=== PATIENT | female | born 1950 | race African-American/Black ===

== ENCOUNTER 2017-04-26 20:14 | Observation (INO) | payer MEDICARE, MEDICAID ==
[2017-04-26] MEDS ORDERED: NORMAL SALINE 1000 ML 1,000 ML IV ONE (20:56)
[2017-04-26] MEDS ORDERED: ONDANSETRON HCL INJ/PF 4 MG/2 ML SDV IV ONE (20:57)
--- NOTE | 2017-04-26 20:59 | ER Document Report ---
ED General - General Stated Complaint: ABDOMINAL PAIN Time Seen by Provider: 04/26/17 20:55 Notes: Patient is a 66-year-old female no reported past medical history who presents with epigastric abdominal pain. The patient is a very poor historian, struggles to explain the reasoning for her presentation today. She only states that for the past 24 hours she has had a dull, constant, throbbing pain in her upper abdomen. Nothing improves or worsens the pain. She reports that she feels nauseated with this pain but has not had any vomiting or diarrhea. She denies any history of similar symptoms in the past. She does report a prior surgical history of a partial hysterectomy but denies any additional abdominal surgeries in the past. She denies any fever, chest pain, shortness of breath or syncope. She does not have a primary care doctor and states that she has not seen a doctor in the last 4 years. TRAVEL OUTSIDE OF THE [place] IN LAST 30 DAYS: No - Related Data Allergies/Adverse Reactions: Shellfish * [Shellfish] Allergy (Verified 08/03/13 08:17) glands swell up Past Medical History - General Information source: Patient - Social History Smoking Status: Current Every Day Smoker Frequency of alcohol use: None Drug Abuse: None Lives with: Alone Family History: Reviewed & Not Pertinent - Past Medical History Cardiac Medical History: Reports: Hx Hypertension Pulmonary Medical History: Reports: Hx Asthma Past Surgical History: Reports: Hx Breast Surgery - cyst removed x2, Hx Hysterectomy - partial - Immunizations Hx Diphtheria, Pertussis, Tetanus Vaccination: No Review of Systems - Review of Systems Notes: Constitutional: Negative for fever. HENT: Negative for sore throat. Eyes: Negative for visual changes. Cardiovascular: Negative for chest pain. Respiratory: Negative for shortness of breath. Gastrointestinal: Positive for abdominal pain and nausea. Genitourinary: Negative for dysuria. Musculoskeletal: Negative for back pain. Skin: Negative for rash. Neurological: Negative for headaches, weakness or numbness. 10 point ROS negative except as marked above and in HPI. Physical Exam - Vital signs Vitals: Resp Pulse Ox 15 100 04/26/17 20:59 04/26/17 20:59 Interpretation: Normal Notes: PHYSICAL EXAMINATION: GENERAL: Well-appearing, well-nourished and in no acute distress. HEAD: Atraumatic, normocephalic. EYES: Pupils equal round and reactive to light, extraocular movements intact, sclera anicteric, conjunctiva are normal. ENT: nares patent, oropharynx clear without exudates. Moist mucous membranes. NECK: Normal range of motion, supple without lymphadenopathy LUNGS: Breath sounds clear to auscultation bilaterally and equal. No wheezes rales or rhonchi. HEART: Regular rate and rhythm without murmurs ABDOMEN: Soft, focal tenderness to the epigastrium but otherwise no localized tenderness, normoactive bowel sounds. No guarding, no rebound. No masses appreciated. EXTREMITIES: Normal range of motion, no pitting or edema. No cyanosis. NEUROLOGICAL: No focal neurological deficits. Moves all extremities spontaneously and on command. PSYCH: Has some mild difficulty providing history but otherwise alert and oriented 4 SKIN: Warm, Dry, normal turgor, no rashes or lesions noted. Course - Re-evaluation Re-evalutation: 04/26/17 20:57 Patient presents with generalized abdominal pain most localized to the epigastrium and is overall ill in appearance. She is in obvious agony. Prior surgical history is a partial hysterectomy and she denies any other medical problems. Differential diagnostic concerns include possible pathology, acute pancreatitis, mesenteric ischemia, possible bowel obstruction although patient has not had any vomiting. IV access will be established. Will begin nausea and pain control. Begin IV fluids. Will also obtain labs and CT abdomen pelvis with contrast to further evaluate. 04/27/17 00:08 Patient's troponin continues to trend become increasingly worse in the patient' s epigastric abdominal pain with nausea is an atypical presentation of ACS. Her EKG is without ischemic changes. Will repeat an additional troponin at this time to monitor the ongoing trend and provide Lovenox as well as aspirin. 04/27/17 01:20 Third repeat troponin has down trended somewhat and Dr. Prajapati has accepted the patient for admission. I have updated the patient and she does seem somewhat lethargic but does awaken talk to me. Will give a small amount of naloxone as I am concerned that patient may have become oversedated with the last dose of 4 mg of morphine. - Vital Signs Vital signs: Temp Pulse Resp BP Pulse Ox 99.4 F 108 H 14 149/73 H 100 04/26/17 21:03 04/26/17 21:03 04/27/17 00:01 04/27/17 00:01 04/27/17 00:01 - Laboratory Result Diagrams: 04/26/17 20:55 04/26/17 20:55 Laboratory results interpreted by me: 04/26/17 04/26/17 04/26/17 20:55 20:55 22:50 Hgb 11.1 L Hct 33.2 L Seg Neuts % (Manual) 92 H Lymphocytes % (Manual) 4 L Abs Lymphs (Manual) 0.3 L Sodium 136.6 L Glucose 139 H Urine Ketones 20 H Urine Blood LARGE H - Diagnostic Test Radiology reviewed: Reports reviewed - EKG Interpretation by Me Additional EKG results interpreted by me: 04/27/17 01:21 Sinus tachycardia. Rate 104. No ST elevations or depressions. QTC is 400 Discharge - Discharge Clinical Impression: Elevated troponin, Epigastric abdominal pain Condition: Fair Disposition: ADMITTED OBSERVATION Admitting Provider: Hospitalist [facility] Unit Admitted: Telemetry
[2017-04-26 21:16] LABS: HEMATOCRIT 33.2 % (36.0-47.0); HEMOGLOBIN 11.1 g/dL (12.0-15.5); MEAN CORPUSCULAR HEMOGLOBIN 28.2 pg (27.0-33.4); MEAN CORPUSCULAR HGB CONC 33.5 g/dL (32.0-36.0); MEAN CORPUSCULAR VOLUME 84 fl (80-97); PLATELET COUNT 280 10^3/uL (150-450); RED BLOOD COUNT 3.94 10^6/uL (3.72-5.28); RED CELL DISTRIBUTION WIDTH 13.2 % (11.5-14.0); WHITE BLOOD COUNT 8.3 10^3/uL (4.0-10.5)
[2017-04-26] MEDS: MORPHINE SULFATE 10 MG/ML INJ IV PRN ×2 (21:18→23:21)
[2017-04-26 21:28] LABS: ALANINE AMINOTRANSFERASE 23 U/L (9-52); ALBUMIN 4.5 g/dL (3.5-5.0); ALKALINE PHOSPHATASE 69 U/L (38-126); ANION GAP 12 (5-19); ASPARTATE AMINO TRANSFERASE 26 U/L (14-36); BILIRUBIN,DIRECT 0.2 mg/dL (0.0-0.4); BILIRUBIN,TOTAL 0.5 mg/dL (0.2-1.3); BLOOD UREA NITROGEN 9 mg/dL (7-20); CALCIUM 9.4 mg/dL (8.4-10.2); CARBON DIOXIDE 26 mmol/L (22-30); CHLORIDE 99 mmol/L (98-107); GLUCOSE 139 mg/dL (75-110); LIPASE 31.4 U/L (23-300); POTASSIUM 4.1 mmol/L (3.6-5.0); SODIUM 136.6 mmol/L (137-145); TOTAL PROTEIN 8.2 g/dL (6.3-8.2)
[2017-04-26 21:58] LABS: ABSOLUTE LYMPHOCYTES# (MANUAL) 0.3 10^3/uL (0.5-4.7); ABSOLUTE MONOCYTES # (MANUAL) 0.3 10^3/uL (0.1-1.4); ABSOLUTE NEUTROPHILS# (MANUAL) 7.6 10^3/uL (1.7-8.2); BASOPHILS % (MANUAL) 0 % (0-2); EOSINOPHILS % (MANUAL) 0 % (0-6); LYMPHOCYTES % (MANUAL) 4 % (13-45); MONOCYTES % (MANUAL) 4 % (3-13); SEGMENTED NEUTROPHILS % (MAN) 92 % (42-78); TOTAL CELLS COUNTED 100
[2017-04-26 21:59] LABS: PLATELET COMMENT ADEQUATE; PLATELET GIANT PRESENT; PLATELET LARGE PRESENT; SCHISTOCYTES SLIGHT; TEAR DROP CELLS SLIGHT; TOXIC GRANULATION 1+; TOXIC VACUOLATION PRESENT
--- NOTE | 2017-04-26 23:13 | RADIOLOGY REPORT (SQ) ---
EXAM DESCRIPTION: CT ABD/PELVIS NO ORAL OR IV COMPLETED DATE/TIME: 04/26/2017 10:53 pm REASON FOR STUDY: generalized abdominal pain COMPARISON: None. TECHNIQUE: CT scan of the abdomen and pelvis performed without intravenous or oral contrast. Images reviewed with lung, soft tissue, and bone windows. Reconstructed coronal and sagittal MPR images revi ewed. All images stored on PACS. All CT scanners at this facility use dose modulation, iterative reconstruction, and/or weight based d osing when appropriate to reduce radiation dose to as low as reasonably achievable (ALARA). [facility]: Dose Right [facility]: CareDose [facility]: Dose Right [facility]: Teradose 4D [facility]: [employer] RADIATION DOSE: CT Rad equipment meets quality standard of care and radiation dose reduction techniq ues were employed. CTDIvol: 12.4 mGy. DLP: 572 mGy-cm.mGy. LIMITATIONS: None. FINDINGS: LOWER CHEST: Small area of subsegmental atelectasis in the right lower lobe. NON-CONTRASTED LIVER, SPLEEN, ADRENALS: Evaluation limited by lack of IV contrast. No identified sign ificant masses. PANCREAS: No masses. No peripancreatic inflammatory changes. GALLBLADDER: No identified stones by CT criteria. No inflammatory changes to suggest cholecystitis. RIGHT KIDNEY AND URETER: No suspicious masses. Assessment limited by lack of IV contrast. No signif icant calcifications. No hydronephrosis or hydroureter. LEFT KIDNEY AND URETER: No suspicious masses. Assessment limited by lack of IV contrast. No signifi cant calcifications. No hydronephrosis or hydroureter. AORTA AND RETROPERITONEUM: No aneurysm. No retroperitoneal masses or adenopathy. BOWEL AND PERITONEAL CAVITY: Diverticulosis. No obvious masses or inflammatory changes. No free flui d. APPENDIX: Normal. PELVIS, BLADDER, AND ABDOMINAL WALL:Prior hysterectomy. No free fluid. Bladder normal. BONES: No acute findings. OTHER: No other significant finding. IMPRESSION: NO ACUTE PROCESS IN THE ABDOMEN OR PELVIS. Small area of subsegmental atelectasis in the right lower lobe. COMMENT: Quality ID # [id number]: Final reports with documentation of one or more dose reduction techniques (e.g., Automated exposure control, adjustment of the mA and/or kV according to patient size, use of iterative reconstruction technique) TECHNICAL DOCUMENTATION: JOB ID: [id number] [place]-72 2010 [employer]- All Rights Reserved
[2017-04-26 23:14] LABS: APPEARANCE,URINE CLEAR; BILIRUBIN,URINE NEGATIVE (NEGATIVE); COLOR,URINE YELLOW; GLUCOSE, URINE NEGATIVE (NEGATIVE); KETONES,URINE 20 mg/dL (NEGATIVE); LEUKOCYTE ESTERASE,URINE NEGATIVE (NEGATIVE); NITRITE,URINE NEGATIVE (NEGATIVE); PROTEIN,URINE NEGATIVE (NEGATIVE); URINE SPECIFIC GRAVITY 1.011; UROBILINOGEN,URINE NEGATIVE mg/dL (<2.0)
[2017-04-27] MEDS ORDERED: ASPIRIN 81 MG TABLET, CHEWABLE PO ONE (00:08)
[2017-04-27] MEDS: ENOXAPARIN SODIUM INJ 80 MG/0.8 ML DISP.SYRIN SUBCUT SCH ×2 (01:02→21:35)
[2017-04-27] MEDS ORDERED: NITROGLYCERIN 0.4 MG/TAB 25 TAB/BOTTLE SL PRN (01:19)
[2017-04-27] MEDS ORDERED: ONDANSETRON HCL INJ/PF 4 MG/2 ML SDV IV PRN (01:19)
[2017-04-27] MEDS ORDERED: MORPHINE SULFATE 10 MG/ML INJ IV PRN (01:19)
[2017-04-27] MEDS ORDERED: NALOXONE HCL INJ/PF 0.4 MG/1 ML SDV IV ONE ×3 (01:20→05:23)
[2017-04-27] MEDS ORDERED: NALOXONE HCL INJ/PF 0.4 MG/1 ML SDV ONE ×2 (01:21→01:56)
[2017-04-27] MEDS ORDERED: LOSARTAN POTASSIUM 25 MG TABLET PO SCH ×2 (01:30→10:00)
[2017-04-27] MEDS ORDERED: FAMOTIDINE 20 MG TABLET PO ONE (01:45)
[2017-04-27] MEDS ORDERED: ATORVASTATIN CALCIUM 40 MG TABLET PO ONE (01:45)
[2017-04-27] MEDS ORDERED: NITROGLYCERIN 2% OINTMENT 1 GM PACKET ONE (01:56)
[2017-04-27] MEDS ORDERED: DOXYCYCLINE HYCLATE 100 MG TABLET PO ONE (03:00)
[2017-04-27] MEDS ORDERED: NITROGLYCERIN 2% OINTMENT 1 GM PACKET TP ONE (03:00)
[2017-04-27 03:04] LABS: VENOUS BLOOD BASE EXCESS 0.5 mmol/L; VENOUS BLOOD HCO3 27.6 mmol/L (20-32); VENOUS BLOOD PCO2 56.5 mmHg (35-63); VENOUS BLOOD PH 7.31 (7.30-7.42)
[2017-04-27] MEDS: METHYLPREDNISOLONE INJ 125 MG/2 ML SDV IV SCH ×3 (03:10→21:36)
--- NOTE | 2017-04-27 03:16 | RADIOLOGY REPORT (SQ) ---
EXAM DESCRIPTION: CT HEAD WITHOUT CLINICAL HISTORY: Altered mental status COMPARISON: 07/08/2012 TECHNIQUE: Axial CT of the head obtained from the skull apex to the skull base without contrast. FINDINGS: No acute intracranial hemorrhage identified. No mass, mass effect, shift of the midline, abnormal extra-axial fluid collection or CT evidence of acute ischemic change identified. The ventricular system is unremarkable. No acute abnormalities of the supratentorial white matter, basal ganglia, cerebellum, or brainstem. The visualized paranasal sinuses and the mastoids are clear. No skull fracture identified. Visualized orbits and globes are unremarkable. DLP: 1396.6 mGy-cm IMPRESSION: 1. No acute intracranial abnormality identified. This exam was performed according to our departmental dose-optimization program, which includes automated exposure control, adjustment of the mA and/or kV according to patient size and/or use of iterative reconstruction technique.
[2017-04-27] MEDS ORDERED: LEVALBUTEROL HCL NEB 1.25 MG/3 ML AMPUL NEB PRN (03:21)
[2017-04-27] MEDS ORDERED: MAG HYDROX/AL HYDROX/SIMETH SUSP 30 ML UDCUP PO ONE (04:57)
[2017-04-27] MEDS ORDERED: LIDOCAINE 2% VISCOUS SOLN 20 ML UDCUP PO ONE (04:57)
[2017-04-27] MEDS ORDERED: METOCLOPRAMIDE HCL ORAL SOLN 10 MG/10 ML UDCUP PO ONE (04:57)
--- NOTE | 2017-04-27 04:59 | PDOC H&P ---
History of Present Illness Admission Date/PCP: 04/27/17 01:35 History of Present Illness: RIC NORRIS is a 66 year old female with past medical history of hypertension who is not on any medication who presents to the emergency department with complaints of epigastric pain and nausea. Patient reports that she has had midepigastric pain and nausea and vomiting today. Patient is a very poor historian and she is very unrevealing in her reasons for admission. Patient had received morphine and was given Narcan, but is still quite talkative at this time only complaining of abdominal pain. CT of the abdomen and pelvis without IV contrast or oral contrast reveals no acute pathology. Patient did have an indeterminate troponin which was downtrending at the time that I excepted this admission. She is referred to the hospitalist service for concern for atypical chest pain presentation. I attempted to call the listed telephone number for an Armin Norris, but was given the message that this number was disconnected are no longer in service. Unable to obtain any collateral information. Past Medical History Cardiac Medical History: Reports: Hypertension Pulmonary Medical History: Reports: Asthma Past Surgical History Past Surgical History: Reports: Hysterectomy - partial Social History Smoking Status: Former Smoker Frequency of Alcohol Use: None Hx Recreational Drug Use: No Hx Prescription Drug Abuse: No - Advance Directive Surrogate healthcare decision maker:: Does not answer Family History Family History: Other - Unable to ascertain due to her mental status Parental Family History Reviewed: No Children Family History Reviewed: No Sibling(s) Family History Reviewed.: No Medication/Allergy Home Medications: Codeine/Promethazine HCl [Promethazine-Codeine Syrup] 5 ml PO Q6 #200 ml Allergies/Adverse Reactions: Shellfish * [Shellfish] Allergy (Verified 08/03/13 08:17) glands swell up Review of Systems ROS unobtainable: Due to mental status - Noncompliance with exam Physical Exam Vital Signs: Temp Pulse Resp BP Pulse Ox 99.4 F 108 H 14 149/73 H 100 04/26/17 21:03 04/26/17 21:03 04/27/17 00:01 04/27/17 00:01 04/27/17 00:01 General appearance: PRESENT: mild distress, obese, well-developed, well- nourished Head exam: PRESENT: atraumatic, normocephalic Eye exam: PRESENT: conjunctiva pink, EOMI, PERRLA. ABSENT: conjunctival injection, scleral icterus Ear exam: PRESENT: normal external ear exam Mouth exam: PRESENT: dry mucosa, tongue midline Neck exam: ABSENT: JVD, lymphadenopathy, thyromegaly, tracheal deviation Respiratory exam: PRESENT: prolonged expiratory phas, symmetrical, unlabored, wheezes. ABSENT: accessory muscle use, crackles, rales, rhonchi, tachypnea Cardiovascular exam: PRESENT: RRR, +S1, +S2. ABSENT: diastolic murmur, rubs, systolic murmur Pulses: PRESENT: normal dorsalis pedis pul Vascular exam: PRESENT: normal capillary refill GI/Abdominal exam: PRESENT: normal bowel sounds, soft. ABSENT: distended, firm , guarding, mass, Cruz's sign, organolmegaly, rebound, rigid, tenderness Rectal exam: PRESENT: deferred Extremities exam: PRESENT: full ROM, +1 edema. ABSENT: calf tenderness, clubbing Neurological exam: PRESENT: altered, CN II-XII grossly intact. ABSENT: motor sensory deficit Psychiatric exam: PRESENT: flat affect, unusual affect Skin exam: PRESENT: dry, intact, warm. ABSENT: cyanosis, rash Results Laboratory Results: 04/26/17 04/26/17 04/26/17 20:55 20:55 20:55 WBC 8.3 RBC 3.94 Hct 33.2 L Seg Neuts % (Manual) 92 H VBG pH VBG pCO2 VBG HCO3 Sodium 136.6 L Potassium 4.1 Chloride 99 Carbon Dioxide 26 Anion Gap 12 BUN 9 Creatinine 0.52 Glucose 139 H Calcium 9.4 Total Bilirubin 0.5 Direct Bilirubin 0.2 AST 26 ALT 23 Alkaline Phosphatase 69 Troponin I 0.066 Total Protein 8.2 Albumin 4.5 Lipase 31.4 TSH Urine Ketones Urine Blood Urine RBC (Auto) 04/26/17 04/26/17 04/26/17 20:55 22:40 22:50 WBC RBC Hct Seg Neuts % (Manual) VBG pH VBG pCO2 VBG HCO3 Sodium Potassium Chloride Carbon Dioxide Anion Gap BUN Creatinine Glucose Calcium Total Bilirubin Direct Bilirubin AST ALT Alkaline Phosphatase Troponin I 0.103 Total Protein Albumin Lipase TSH 0.13 L Urine Ketones 20 H Urine Blood LARGE H Urine RBC (Auto) 26 04/27/17 04/27/17 00:10 02:35 WBC RBC Hct Seg Neuts % (Manual) VBG pH 7.31 VBG pCO2 56.5 VBG HCO3 27.6 Sodium Potassium Chloride Carbon Dioxide Anion Gap BUN Creatinine Glucose Calcium Total Bilirubin Direct Bilirubin AST ALT Alkaline Phosphatase Troponin I 0.094 Total Protein Albumin Lipase TSH Urine Ketones Urine Blood Urine RBC (Auto) Impressions: Abdomen/Pelvis CT 04/26/17 20:56 IMPRESSION: NO ACUTE PROCESS IN THE ABDOMEN OR PELVIS. Small area of subsegmental atelectasis in the right lower lobe. Status: Imported from PACS Assessment & Plan - Diagnosis (1) Elevated troponin Is this a current diagnosis for this admission?: Yes Plan: Patient has an indeterminate troponin. Place patient on telemetry observation. Monitor for arrhythmia or ST segment changes. Initiate patient on treatment dose Lovenox. Initiate patient on metoprolol, Lipitor, Cozaar, oxygen, nitroglycerin, and aspirin. Serial cardiac enzymes every 6 hours. Testing lipid panel in the morning. Will obtain stress test tomorrow due to patient's risk factors and concerning history of chest pain. (2) Altered mental status Qualifiers: Altered mental status type: unspecified Qualified Code(s): R41.82 - Altered mental status, unspecified Is this a current diagnosis for this admission?: Yes Plan: Obtain head CT, TSH, and VBG and urine drug screen (3) Hypertensive urgency Is this a current diagnosis for this admission?: Yes Plan: Nitroglycerin (4) Hematuria Is this a current diagnosis for this admission?: Yes Plan: No stone is seen. Concern for underlying vasculitis in light of her abdominal pain. Consider vasculitides and porphyria. (5) Epigastric abdominal pain Is this a current diagnosis for this admission?: Yes Plan: CT the abdomen pelvis is unrevealing we will give a GI cocktail (6) Obesity (BMI 30.0-34.9) Is this a current diagnosis for this admission?: Yes - Time Time Spent: 30 to 50 Minutes Within: within 48 hours
[2017-04-27] MEDS ORDERED: METHYLPREDNISOLONE INJ 40 MG/1 ML SDV IV SCH (06:00)
[2017-04-27 06:58] LABS: FREE T3 2.48 pg/mL (2.77-5.27); FREE T4 (FREE THYROXINE) 1.04 ng/dL (0.78-2.19)
[2017-04-27 07:21] LABS: CREATINE KINASE MB 0.76 ng/mL (<4.55); TROPONIN I 0.092 ng/mL
[2017-04-27] MEDS: LOSARTAN POTASSIUM 25 MG TABLET PO SCH ×2 (11:33→21:35)
[2017-04-27] MEDS: ASPIRIN 325 MG TABLET, ENT COATED PO SCH (11:33)
[2017-04-27] MEDS: METOPROLOL SUCCINATE 25 MG TAB.SR.24H PO SCH (11:34)
[2017-04-27] MEDS: DOXYCYCLINE HYCLATE 100 MG TABLET PO SCH ×2 (11:34→21:36)
[2017-04-27] MEDS: FAMOTIDINE 20 MG TABLET PO SCH ×2 (11:35→21:36)
[2017-04-27] MEDS: NITROGLYCERIN 2% OINTMENT 1 GM PACKET TP SCH ×3 (12:01→20:20)
--- NOTE | 2017-04-27 12:18 | EKG REPORT ---
SEVERITY:- OTHERWISE NORMAL ECG - SINUS TACHYCARDIA : Confirmed by: Christina Ugarte MD 27-Apr-2017 12:17:08
[2017-04-27 13:28] LABS: CREATINE KINASE MB 0.89 ng/mL (<4.55); TROPONIN I 0.073 ng/mL
[2017-04-27 18:33] LABS: CREATINE KINASE MB 1.07 ng/mL (<4.55); TROPONIN I 0.074 ng/mL
[2017-04-27] MEDS ORDERED: ACETAMINOPHEN 325 MG TABLET PO PRN (21:27)
[2017-04-27] MEDS ORDERED: ATORVASTATIN CALCIUM 40 MG TABLET PO SCH (22:00)
[2017-04-28] MEDS: NITROGLYCERIN 2% OINTMENT 1 GM PACKET TP SCH ×3 (02:38→14:03)
[2017-04-28] MEDS: METHYLPREDNISOLONE INJ 125 MG/2 ML SDV IV SCH ×2 (05:39→13:15)
[2017-04-28 07:24] LABS: CHOLESTEROL 192.79 mg/dL (0-200); CREATINE KINASE 185 U/L (30-135); TRIGLYCERIDES 54 mg/dL (<150)
[2017-04-28 07:35] LABS: DIRECT LDL 100 mg/dL (<100)
[2017-04-28] MEDS: ENOXAPARIN SODIUM INJ 80 MG/0.8 ML DISP.SYRIN SUBCUT SCH (10:40)
[2017-04-28] MEDS: DOXYCYCLINE HYCLATE 100 MG TABLET PO SCH (10:41)
[2017-04-28] MEDS: METOPROLOL SUCCINATE 25 MG TAB.SR.24H PO SCH (10:41)
[2017-04-28] MEDS: LOSARTAN POTASSIUM 25 MG TABLET PO SCH (10:41)
[2017-04-28] MEDS: ASPIRIN 325 MG TABLET, ENT COATED PO SCH (10:42)
[2017-04-28] MEDS: FAMOTIDINE 20 MG TABLET PO SCH (10:42)
--- NOTE | 2017-04-28 11:03 | EKG REPORT ---
SEVERITY:- ABNORMAL ECG - SINUS RHYTHM LEFT ATRIAL ABNORMALITY LEFT VENTRICULAR HYPERTROPHY : Confirmed by: Christina Ugarte MD 28-Apr-2017 11:02:54
[2017-04-28 12:03] VITALS: BP 146/86
[2017-04-28] MEDS ORDERED: BISACODYL 5 MG TABEC PO ONE (13:30)
[2017-04-28] MEDS ORDERED: SORBITOL 70% SOLUTION 30 ML UDC PO ONE (14:00)
--- NOTE | 2017-04-29 12:03 | PDOC DISCHARGE SUMMARY ---
General - Admit/Disc Date/PCP Admission Date/Primary Care Provider: 04/27/17 01:35 Discharge Date: 04/28/17 - Discharge Diagnosis (1) Altered mental status Is this a current diagnosis for this admission?: Yes (2) Elevated troponin Is this a current diagnosis for this admission?: Yes (3) Epigastric abdominal pain Is this a current diagnosis for this admission?: Yes (4) Hematuria Is this a current diagnosis for this admission?: Yes (5) Hypertensive urgency Is this a current diagnosis for this admission?: Yes (6) Obesity (BMI 30.0-34.9) Is this a current diagnosis for this admission?: Yes - Additional Information Resuscitation Status: Full Code Discharge Diet: As Tolerated Discharge Activity: Activity As Tolerated Home Medications: No Home Medications 04/27/17 History of Present Illness History of Present Illness: RIC NORRIS is a 66 year old female admitted to the ED with complaints of epigastric pain and nausea. Patient did have some vomiting on admission. Please refer to H&P dictated by Dr. Prajapati for complete details. Hospital Course Hospital Course: He was admitted with a complaint of abdominal pain. Patient did not give it much history. Patient had a CT done of the abdomen which did not show any acute findings. Patient did later on complained stated that she had had some coughing which may have caused her stomach muscles to become sore. Patient states she feels fine now. It was also noted to have indeterminate troponin for which patient was being worked up from a cardiac standpoint. Patient high- dose troponin was 0.094 however this trended down to 0.074. Patient never gave any history of chest pain. She was started on Lovenox, metoprolol, Nitropaste, for Cozaar and aspirin. Patient refused to take these medications and also refused a stress test. Patient had change in mentation most likely due to dehydration. Patient went on states that she feels the medications were causing her to feel poorly. Patient mentation is back to baseline. CT scan of head was negative. Patient did have hematuria however this may have been secondary to in and out cath urine specimen. Patient had hypertensive urgency however this may have been secondary to patient not feeling well or pain. Patient does not take any medications normally and does not follow-up with PCP. Patient states that she is not going to take any medications because she has not been on any. Obesity patient states she is physically active and eats healthy. Patient was counseled on continue physical activity and eating of baked foods, fruits and vegetables in order to maintain a normal weight. She was discharged home with family. Physical Exam Vital Signs: Temp Pulse Resp BP Pulse Ox 98.3 F 80 16 146/86 H 97 04/28/17 15:11 04/28/17 15:11 04/28/17 15:11 04/28/17 15:11 04/28/17 15:11 Intake & Output 04/28/17 04/29/17 04/30/17 06:59 06:59 06:59 Intake Total 28 480 Output Total 500 Balance -472 480 Weight 78.8 kg General appearance: PRESENT: no acute distress, obese, well-developed, well- nourished Head exam: PRESENT: normocephalic Eye exam: PRESENT: EOMI. ABSENT: scleral icterus Ear exam: PRESENT: normal external ear exam Mouth exam: PRESENT: moist Neck exam: ABSENT: carotid bruit, JVD, lymphadenopathy, thyromegaly Respiratory exam: PRESENT: clear to auscultation dariel. ABSENT: rales, rhonchi, wheezes Cardiovascular exam: PRESENT: RRR. ABSENT: diastolic murmur, rubs, systolic murmur Pulses: PRESENT: normal dorsalis pedis pul Vascular exam: PRESENT: normal capillary refill GI/Abdominal exam: PRESENT: normal bowel sounds, soft. ABSENT: distended, guarding, mass, organolmegaly, rebound, tenderness Rectal exam: PRESENT: deferred Extremities exam: PRESENT: full ROM. ABSENT: calf tenderness, clubbing, pedal edema Neurological exam: PRESENT: alert, awake, oriented to person, oriented to place , oriented to time, oriented to situation, CN II-XII grossly intact. ABSENT: motor sensory deficit Psychiatric exam: PRESENT: appropriate affect, normal mood. ABSENT: homicidal ideation, suicidal ideation Skin exam: PRESENT: dry, intact, warm. ABSENT: cyanosis, rash Results Laboratory Results: 04/27/17 04/27/17 04/27/17 06:02 12:36 18:00 Creatine Kinase CK-MB (CK-2) 0.76 0.89 1.07 Troponin I 0.092 0.073 0.074 04/28/17 05:58 Creatine Kinase 185 H CK-MB (CK-2) Troponin I Impressions: Abdomen/Pelvis CT 04/26/17 20:56 IMPRESSION: NO ACUTE PROCESS IN THE ABDOMEN OR PELVIS. Small area of subsegmental atelectasis in the right lower lobe. Head CT 04/27/17 00:00 IMPRESSION: 1. No acute intracranial abnormality identified. This exam was performed according to our departmental dose-optimization program, which includes automated exposure control, adjustment of the mA and/or kV according to patient size and/or use of iterative reconstruction technique. Qualifiers PATEINT BEING DISCHARGED WITH ANY OF THE FOLLOWING DIAGNOSIS?: No Plan Time Spent: Greater than 30 Minutes
== END 2017-04-28 15:55 | disposition home or self-care (01) ==
LOC: ER 20:14 → EH 04-27 01:35 → 5 04-27 04:53
PROVIDERS: ADMIT Family Medicine; ATTEND Family Medicine
DX: R10.13 Epigastric pain (principal); R41.82 Altered mental status, unspecified; R79.89 Other specified abnormal findings of blood chemistry; R31.9 Hematuria, unspecified; I16.0 Hypertensive urgency; E66.9 Obesity, unspecified; R11.2 Nausea with vomiting, unspecified; R05 Cough; Z68.32 Body mass index [BMI] 32.0-32.9, adult; Z90.710 Acquired absence of both cervix and uterus; Z87.891 Personal history of nicotine dependence
CPT/HCPCS: 93005 ×2; 99285; 96372; 96361; 96374; 96375; 36415 ×3; 84439; 82553; 82550; 83690; 84443; 85025; 80053; 81001; 84484 ×2; 84481; 82803; 80061; 70450; 74176; 93010 ×2; A9270 ×13; J3490 ×3; J2930 ×2; J2270; J2310; J2405; J7030; J1650 ×2

== ENCOUNTER 2019-04-12 04:13 | Emergency (ER) | payer MEDICARE, MEDICAID ==
[2019-04-12] MEDS ORDERED: NORMAL SALINE 1000 ML 1,000 ML IV ONE (09:34)
[2019-04-12] MEDS ORDERED: ACETAMINOPHEN 325 MG TABLET PO ONE (09:35)
--- NOTE | 2019-04-12 09:36 | ER Document Report ---
ED GI/ - General Chief Complaint: Lower Abdominal Pain Stated Complaint: ABDOMINAL PAIN Time Seen by Provider: 04/12/19 09:22 Primary Care Provider: ARASELI KRAFT PA-C [Primary Care Provider] - Follow up tomorrow Mode of Arrival: Ambulatory Information source: Patient Notes: Patient presents complaining of lower abdominal pelvic pain off and on for the past 2 days only whenever she is up ambulating. Patient otherwise denies any pain symptoms. Patient states that she has had some constipation symptoms although had a small bowel movement while here today. Patient does complain of some nausea no vomiting or diarrhea. Patient denies any fever or urinary sym ptoms. Appetite has been normal. TRAVEL OUTSIDE OF THE [place] IN LAST 30 DAYS: No - HPI Patient complains to provider of: Abdominal pain. No: Vomiting Onset: Other - 2 days Timing/Duration: Waxing and waning Quality of pain: Sharp Severity in ED: None Location: Pelvis Vaginal bleeding (Compared to normal period): None Associated symptoms: Nausea. denies: Constipation, Diarrhea, Urinary hesitancy, Urinary frequency, Urinary retention, Urinary urgency, Vomiting Exacerbated by: Walking Relieved by: Remaining still Similar symptoms previously: No Recently seen / treated by doctor: No - Related Data Allergies/Adverse Reactions: Shellfish * [Shellfish] Allergy (Verified 08/03/13 08:17) glands swell up Past Medical History - General Information source: Patient - Social History Smoking Status: Never Smoker Frequency of alcohol use: None Drug Abuse: None Occupation: None Family History: Other - Unable to ascertain due to her mental status Patient has suicidal ideation: No Patient has homicidal ideation: No Pulmonary Medical History: Reports: Hx Asthma Renal/ Medical History: Denies: Hx Peritoneal Dialysis Past Surgical History: Reports: Hx Breast Surgery - cyst removed x2, Hx Hysterectomy - partial - Immunizations Hx Diphtheria, Pertussis, Tetanus Vaccination: No Review of Systems - Review of Systems Constitutional: No symptoms reported. denies: Fever EENT: No symptoms reported Cardiovascular: No symptoms reported. denies: Chest pain Respiratory: No symptoms reported. denies: Cough, Short of breath Gastrointestinal: Abdominal pain, Nausea, Constipation, Last bowel movement - Today. denies: Diarrhea, Vomiting, Rectal bleeding Genitourinary: No symptoms reported. denies: Dysuria, Flank pain Female Genitourinary: No symptoms reported Musculoskeletal: No symptoms reported Skin: No symptoms reported Hematologic/Lymphatic: No symptoms reported Neurological/Psychological: No symptoms reported Physical Exam - Vital signs Vitals: Temp Pulse Resp BP Pulse Ox 98.5 F 93 18 135/70 H 97 04/12/19 04:21 04/12/19 04:21 04/12/19 04:21 04/12/19 04:21 04/12/19 04:21 - General General appearance: Appears well, Alert In distress: None - HEENT Head: Normocephalic, Atraumatic Eyes: Normal Conjunctiva: Normal Nasal: Normal Mouth/Lips: Normal Mucous membranes: Normal Neck: Normal, Supple. No: Lymphadenopathy - Respiratory Respiratory status: No respiratory distress Chest status: Nontender Breath sounds: Normal. No: Rales, Rhonchi, Stridor, Wheezing Chest palpation: Normal - Cardiovascular Rhythm: Regular Heart sounds: S1 appreciated, S2 appreciated Murmur: No - Abdominal Inspection: Normal Distension: No distension Bowel sounds: Normal Tenderness: Tender - Lower pelvic tenderness. No: McBurney's point, Guarding Organomegaly: No organomegaly - Back Back: Normal, Nontender. No: CVA tenderness - Extremities General upper extremity: Normal inspection, Normal strength General lower extremity: Normal inspection, Normal strength - Neurological Neuro grossly intact: Yes Cognition: Normal [place] Coma Scale Eye Opening: Spontaneous [place] Coma Scale Verbal: Oriented Marlon Coma Scale Motor: Obeys Commands [place] Coma Scale Total: 15 - Psychological Associated symptoms: Normal affect, Normal mood - Skin Skin Temperature: Warm Skin Moisture: Dry Skin Color: Normal Course - Re-evaluation Re-evalutation: 04/12/19 11:14 Patient without any acute findings noted on CT scan. Pt with diverticulosis incidentally noted on CT scan. Patient with no leukocytosis or fever. Patient with minimal hematuria. Patient has had this finding in the past. Patient denies any urinary symptoms, no concern for UTI. Patient's abdomen soft and nontender on repeat examination. Patient states she is only been drinking soda recently and not a lot of water. Patient states that she has had some constipation symptoms. Patient encouraged to increase oral hydration. Will start patient on MiraLAX at home. Patient presents with abdominal pain without signs of peritonitis or other life-threatening or serious etiology. Patient appears stable for discharge and has been instructed to return immediately if the symptoms worsen in any way for re evaluation. - Vital Signs Vital signs: Temp Pulse Resp BP Pulse Ox 98.1 F 88 20 136/64 H 99 04/12/19 11:51 04/12/19 11:51 04/12/19 11:51 04/12/19 11:51 04/12/19 11:51 - Laboratory Result Diagrams: 04/12/19 09:25 04/12/19 09:25 Laboratory results interpreted by me: 04/12/19 04/12/19 09:25 09:25 Hgb 11.6 L RDW 14.4 H Urine Ketones TRACE H Urine Blood MODERATE H Labs- Entire Visit 04/12/19 04/12/19 04/12/19 09:25 09:25 09:25 WBC 5.8 RBC 4.20 Hgb 11.6 L Hct 36.0 MCV 86 MCH 27.7 MCHC 32.3 RDW 14.4 H Plt Count 320 Lymph % (Auto) 20.3 [place] % (Auto) 10.7 Eos % (Auto) 1.0 Baso % (Auto) 0.7 Absolute Neuts (auto) 3.9 Absolute Lymphs (auto) 1.2 Absolute Monos (auto) 0.6 Absolute Eos (auto) 0.1 Absolute Basos (auto) 0.0 Seg Neutrophils % 67.3 Sodium 141.4 Potassium 3.9 Chloride 100 Carbon Dioxide 29 Anion Gap 12 BUN 9 Creatinine 0.58 Est GFR ( Amer) > 60 Est GFR (MDRD) Non-Af > 60 Glucose 93 Calcium 9.3 Total Bilirubin 0.6 Direct Bilirubin 0.2 Neonat Total Bilirubin Not Reportable Neonat Direct Bilirubin Not Reportable Neonat Indirect Bili Not Reportable AST 23 ALT 10 Alkaline Phosphatase 74 Total Protein 8.1 Albumin 4.3 Lipase 98.3 Urine Color YELLOW Urine Appearance CLEAR Urine pH 5.0 Ur Specific [place] 1.014 Urine Protein NEGATIVE Urine Glucose (UA) NEGATIVE Urine Ketones TRACE H Urine Blood MODERATE H Urine Nitrite NEGATIVE Urine Bilirubin NEGATIVE Urine Urobilinogen NEGATIVE Ur Leukocyte Esterase NEGATIVE Urine WBC (Auto) 1 Urine RBC (Auto) 7 U Hyaline Cast (Auto) 1 Urine Bacteria (Auto) TRACE Squamous Epi Cells Auto 1 Urine Mucus (Auto) FEW Urine Ascorbic Acid NEGATIVE - Diagnostic Test Radiology reviewed: Image reviewed, Reports reviewed Discharge - Discharge Clinical Impression: Abdominal pain Qualifiers: Abdominal location: lower abdomen, unspecified Qualified Code(s): R10.30 - Lower abdominal pain, unspecified Condition: Stable Disposition: HOME, SELF-CARE Instructions: Abdominal Pain ([facility]) Additional Instructions: Return immediately for any new or worsening symptoms: fever, vomiting, worsening pain, or any concerning new symptoms Followup with a primary care provider, call tomorrow to make a followup appointment Increase oral fluids and stay well-hydrated Prescriptions: Polyethylene Glycol 3350 [Miralax] 17 gm PO DAILY #119 powder Referrals: ARASELI KRAFT PA-C [Primary Care Provider] - Follow up tomorrow
[2019-04-12 09:53] LABS: ABSOLUTE EOSINOPHILS # (AUTO) 0.1 10^3/uL (0.0-0.6); ABSOLUTE LYMPHOCYTES (AUTO) 1.2 10^3/uL (0.5-4.7); ABSOLUTE MONOCYTES (AUTO) 0.6 10^3/uL (0.1-1.4); ABSOLUTE NEUT (AUTO) 3.9 10^3/uL (1.7-8.2); BASOPHILS % (AUTO) 0.7 % (0-2); HEMOGLOBIN 11.6 g/dL (12.0-15.5); LYMPHOCYTES % (AUTO) 20.3 % (13-45); MEAN CORPUSCULAR HEMOGLOBIN 27.7 pg (27.0-33.4); MEAN CORPUSCULAR HGB CONC 32.3 g/dL (32.0-36.0); MEAN CORPUSCULAR VOLUME 86 fl (80-97); MONOCYTES % (AUTO) 10.7 % (3-13); PLATELET COUNT 320 10^3/uL (150-450); RED CELL DISTRIBUTION WIDTH 14.4 % (11.5-14.0); SEGMENTED NEUTROPHILS % (AUTO) 67.3 % (42-78); TOTAL CELLS COUNTED % (AUTO) 100 %; WHITE BLOOD COUNT 5.8 10^3/uL (4.0-10.5)
[2019-04-12 09:57] LABS: APPEARANCE,URINE CLEAR; BILIRUBIN,URINE NEGATIVE (NEGATIVE); COLOR,URINE YELLOW; GLUCOSE, URINE NEGATIVE (NEGATIVE); KETONES,URINE TRACE mg/dL (NEGATIVE); LEUKOCYTE ESTERASE,URINE NEGATIVE (NEGATIVE); NITRITE,URINE NEGATIVE (NEGATIVE); PROTEIN,URINE NEGATIVE (NEGATIVE); URINE SPECIFIC GRAVITY 1.014; UROBILINOGEN,URINE NEGATIVE mg/dL (<2.0)
--- NOTE | 2019-04-12 10:12 | RADIOLOGY REPORT (SQ) ---
EXAM DESCRIPTION: CT ABD/PELVIS NO ORAL OR IV COMPLETED DATE/TIME: 04/12/2019 9:58 am REASON FOR STUDY: lower abd pain COMPARISON: 2017 TECHNIQUE: CT scan of the abdomen and pelvis performed without intravenous or oral contrast. Images reviewed with lung, soft tissue, and bone windows. Reconstructed coronal and sagittal MPR images revi ewed. All images stored on PACS. All CT scanners at this facility use dose modulation, iterative reconstruction, and/or weight based d osing when appropriate to reduce radiation dose to as low as reasonably achievable (ALARA). [facility]: Dose Right [facility]: CareDose [facility]: Dose Right [facility]: Teradose 4D [facility]: [employer] RADIATION DOSE: CT Rad equipment meets quality standard of care and radiation dose reduction techniq ues were employed. CTDIvol: 8.4 mGy. DLP: 396 mGy-cm.mGy. LIMITATIONS: None. FINDINGS: LOWER CHEST: No significant findings. No nodules or infiltrates. NON-CONTRASTED LIVER, SPLEEN, ADRENALS: Evaluation limited by lack of IV contrast. No identified sign ificant masses. PANCREAS: No masses. No peripancreatic inflammatory changes. GALLBLADDER: Contracted. No discrete calcified stones. RIGHT KIDNEY AND URETER: No solid masses. No significant calcification. No hydronephrosis or hydroure ter. LEFT KIDNEY AND URETER: No solid masses. No significant calcification. No hydronephrosis or hydrouret er. AORTA AND RETROPERITONEUM: No aneurysm. No retroperitoneal masses or adenopathy. BOWEL AND PERITONEAL CAVITY: Diverticulosis, including in the right colon. No active diverticulitis suggested. No bowel obstruction or ascites or abnormal gas collections. APPENDIX: Not visualized. PELVIS, BLADDER, AND ABDOMINAL WALL:No abnormal masses. No free fluid. Bladder normal. BONES: No significant findings. OTHER: No other significant finding. IMPRESSION: 1. Diverticulosis without clear CT evidence of active diverticulitis. 2. No acute or suspicious findings appreciated. TECHNICAL DOCUMENTATION: JOB ID: [id number] Quality ID # [id number]: Final reports with documentation of one or more dose reduction techniques (e.g., Au tomated exposure control, adjustment of the mA and/or kV according to patient size, use of iterative reconstruction technique) 2010 [employer]- All Rights Reserved Reading location - IP/workstation name: [email or web address]
[2019-04-12 10:13] LABS: ALBUMIN 4.3 g/dL (3.5-5.0); ALKALINE PHOSPHATASE 74 U/L (38-126); ANION GAP 12 (5-19); ASPARTATE AMINO TRANSFERASE 23 U/L (14-36); BILIRUBIN,DIRECT 0.2 mg/dL (0.0-0.4); BILIRUBIN,TOTAL 0.6 mg/dL (0.2-1.3); BLOOD UREA NITROGEN 9 mg/dL (7-20); CALCIUM 9.3 mg/dL (8.4-10.2); CARBON DIOXIDE 29 mmol/L (22-30); CHLORIDE 100 mmol/L (98-107); GLUCOSE 93 mg/dL (75-110); POTASSIUM 3.9 mmol/L (3.6-5.0); TOTAL PROTEIN 8.1 g/dL (6.3-8.2)
[2019-04-12] MEDS ORDERED: MAGNESIUM HYDROXIDE SUSP 30 ML UDCUP PO ONE (11:11)
[2019-04-12 11:42] VITALS: BP 136/64
== END 2019-04-12 11:51 | disposition home or self-care (01) ==
LOC: ER 04:13
DX: R10.30 Lower abdominal pain, unspecified (principal); R10.2 Pelvic and perineal pain; K59.00 Constipation, unspecified; R11.0 Nausea; J45.909 Unspecified asthma, uncomplicated
CPT/HCPCS: 99284; 96360; 36415; 83690; 85025; 80053; 81001; 74176; A9270; J7030; J3490